=== PATIENT | female | born 1975 | race Caucasian/White ===

== ENCOUNTER 2025-03-25 15:57 | Emergency (ER) | payer SELFPAY | END 2025-03-25 16:45 | disposition left against medical advice (07) | LOC: BURERS 15:57 | DX: S80.01XA Contusion of right knee, initial encounter (principal); N93.9 Abnormal uterine and vaginal bleeding, unspecified; W22.09XA Striking against other stationary object, initial encounter | CPT/HCPCS: 99284 ==